=== PATIENT | female | born 1990 | race Caucasian/White ===

== ENCOUNTER → 2018-06-02 | Outpatient (REF) | payer SELFPAY | LOC: M LAB REF 13:08 | DX: Z34.83 Encounter for supervision of other normal pregnancy, third trimester (principal); Z3A.00 Weeks of gestation of pregnancy not specified ==

== ENCOUNTER 2018-06-17 21:29 | Inpatient (IN) | payer BC, SELFPAY ==
[2018-06-17 23:13] LABS: HEMATOCRIT 37.9 % (36.0-47.0); HEMOGLOBIN 12.8 g/dl (12.0-15.5); MEAN CORPUSCULAR HEMOGLOBIN 30.4 pg (27.0-33.0); MEAN CORPUSCULAR HGB CONC 33.8 g/dl (32.0-36.5); PLATELET COUNT, AUTOMATED 169 10^3/uL (150-450); RED BLOOD COUNT 4.21 10^6/uL (4.00-5.40); RED CELL DISTRIBUTION WIDTH 13.1 % (11.5-14.5); WHITE BLOOD COUNT 7.2 10^3/uL (4.0-10.0)
[2018-06-17] MEDS: PENICILLIN G POTASSIUM IV 5 MU in D5W MINI-BAG PLUS 100 ML IV (23:18)
[2018-06-18 02:05] LABS: ALT/SGPT 31 U/L (12-78); AST/SGOT 17 U/L (7-37); BILIRUBIN,TOTAL 0.2 MG/DL (0.2-1.0); CREATININE FOR GFR 0.36 MG/DL (0.55-1.30); GLOMERULAR FILTRATION RATE > 60.0 (>60); LDH LACTATE DEHYDROGENASE 193 U/L (84-246); URIC ACID 3.6 MG/DL (2.6-6.0)
[2018-06-18] MEDS: PENICILLIN G POTASSIUM IV 2.5 MU in APPROPRIATE DILUENT 1 EA IV ×4 (03:09→15:17)
[2018-06-18] MEDS: LR 1,000 ML IV ×3 (10:55→21:00)
[2018-06-18 17:57] LABS: HEMATOCRIT 38.4 % (36.0-47.0); HEMOGLOBIN 13.1 g/dl (12.0-15.5); MEAN CORPUSCULAR HEMOGLOBIN 30.8 pg (27.0-33.0); MEAN CORPUSCULAR HGB CONC 34.1 g/dl (32.0-36.5); MEAN CORPUSCULAR VOLUME 90.4 fl (80.0-96.0); PLATELET COUNT, AUTOMATED 152 10^3/uL (150-450); RED BLOOD COUNT 4.25 10^6/uL (4.00-5.40); RED CELL DISTRIBUTION WIDTH 13.2 % (11.5-14.5); WHITE BLOOD COUNT 8.3 10^3/uL (4.0-10.0)
[2018-06-18 18:24] LABS: ALT/SGPT 29 U/L (12-78); AST/SGOT 26 U/L (7-37); BILIRUBIN,TOTAL 0.5 MG/DL (0.2-1.0); CREATININE FOR GFR 0.23 MG/DL (0.55-1.30); GLOMERULAR FILTRATION RATE > 60.0 (>60); LDH LACTATE DEHYDROGENASE 206 U/L (84-246); URIC ACID 4.2 MG/DL (2.6-6.0)
[2018-06-18] MEDS ORDERED: ERYTHROMYCIN LACTOBIONATE IV (19:00)
[2018-06-18] MEDS ORDERED: D5W IV (19:00)
[2018-06-18] MEDS ORDERED: MATE ADAPTER IV (19:00)
[2018-06-18] MEDS: AZITHROMYCIN INJ 500 MG, VIAL MATE ADAPTER 1 EACH in D5W 250 ML IV (19:12)
[2018-06-18] MEDS: BICITRA 30ML SOLN UDC PO (19:28)
[2018-06-18] MEDS ORDERED: METOCLOPRAMIDE INJ 10MG/2ML VIAL (J2765) IV (19:40)
[2018-06-18] MEDS ORDERED: ONDANSETRON 4MG/2ML VIAL (J2405) IV ×3 (19:40→21:00)
[2018-06-18] MEDS ORDERED: NALOXONE INJ 0.4 MG/1 ML VIAL (J2310) IV ×2 (19:40)
[2018-06-18] MEDS ORDERED: NALBUPHINE HCL 10 MG/ML AMP (J2300) IV ×2 (19:40→21:00)
[2018-06-18] MEDS ORDERED: MORPHINE PRES-FREE INJ 10 MG/10 ML VIAL (J2274) As Ordered (20:05)
[2018-06-18] MEDS ORDERED: OXYTOCIN INJ 10 UNITS/ML VIAL (J2590) As Ordered (20:05)
[2018-06-18] MEDS ORDERED: KETOROLAC 60 MG/2 ML VIAL (J1885) As Ordered (20:05)
[2018-06-18] MEDS ORDERED: ONDANSETRON 4MG/2ML VIAL (J2405) As Ordered (20:05)
[2018-06-18] MEDS ORDERED: METOCLOPRAMIDE INJ 10MG/2ML VIAL (J2765) As Ordered (20:05)
[2018-06-18] MEDS ORDERED: dexameTHASONE 4 MG/ML 1ML VIAL (J1100) As Ordered (20:05)
[2018-06-18] MEDS ORDERED: ePHEDrine SULFATE 25 MG/5 ML(5MG/ML) SYRINGE As Ordered (20:05)
[2018-06-18] MEDS ORDERED: PHENYLephrine HCL 500 MCG/5 ML (100MCG/ML) SYRINGE (J2370) As Ordered (20:05)
[2018-06-18 20:17] LABS: CORD GAS ABE V -3.7; CORD GAS PCO2 V 42.3 mmHg; CORD GAS PH V 7.334 UNITS; CORD GAS PO2 V 21.6 mmHg; CORD GAS SBC V 20.1 MEQ/L; CORD GAS TCO2 V 23.3 MEQ/L
[2018-06-18 20:20] LABS: CORD GAS ABE A -2.3; CORD GAS HCO3 A 25.6 MEQ/L; CORD GAS O2 SAT A < 15.0 %; CORD GAS PCO2 A 57.5 mmHg; CORD GAS PH A 7.267 UNITS; CORD GAS TCO2 A 27.4 MEQ/L
[2018-06-18] MEDS ORDERED: METHYLERGONOVINE MALEATE 0.2 MG TAB PO (20:45)
[2018-06-18] MEDS ORDERED: MOM 30ML SUSPENSION UDC PO (20:45)
[2018-06-18] MEDS ORDERED: RHOGAM 300 MCG (1500 IU) INJ (J2790) IM (20:45)
[2018-06-18] MEDS ORDERED: MEASLES,MUMPS,RUBELLA VACCINE INJ (MMR-II) (90707) SC (20:45)
[2018-06-18] MEDS ORDERED: MEPERIDINE INJ 25 MG/ML VIAL (J2175) IV (21:00)
[2018-06-18] MEDS ORDERED: fentaNYL 100 MCG/2 ML INJECTION (J3010) IV (21:00)
[2018-06-18] MEDS ORDERED: diphenhydrAMINE INJ 50MG/ML VIAL (J1200) IV (21:00)
[2018-06-18] MEDS: DOCUSATE SODIUM 100 MG CAP PO (22:15)
[2018-06-19] MEDS: IBUPROFEN 800 MG TAB PO ×3 (04:09→20:26)
[2018-06-19] MEDS: LR 1,000 ML IV ×3 (04:34→12:34)
[2018-06-19] MEDS: NORCO, ANEXSIA 5/325MG TABLET (HYDROcodone/ACETAMINOPHEN) PO (07:49)
[2018-06-19 07:56] LABS: HEMATOCRIT 31.9 % (36.0-47.0); HEMOGLOBIN 10.9 g/dl (12.0-15.5); MEAN CORPUSCULAR HEMOGLOBIN 30.8 pg (27.0-33.0); MEAN CORPUSCULAR HGB CONC 34.2 g/dl (32.0-36.5); MEAN CORPUSCULAR VOLUME 90.1 fl (80.0-96.0); PLATELET COUNT, AUTOMATED 158 10^3/uL (150-450); RED BLOOD COUNT 3.54 10^6/uL (4.00-5.40); WHITE BLOOD COUNT 9.5 10^3/uL (4.0-10.0)
[2018-06-19] MEDS: LR 500 ML IV (08:15)
[2018-06-19] MEDS: DOCUSATE SODIUM 100 MG CAP PO ×2 (09:18→20:25)
[2018-06-19] MEDS: PRENATAL VITAMINS CHEWABLE TABLET PO (09:19)
[2018-06-20] MEDS: IBUPROFEN 800 MG TAB PO ×2 (04:15→12:10)
[2018-06-20] MEDS: NORCO, ANEXSIA 5/325MG TABLET (HYDROcodone/ACETAMINOPHEN) PO ×3 (04:15→13:50)
[2018-06-20] MEDS: DOCUSATE SODIUM 100 MG CAP PO (08:16)
[2018-06-20] MEDS: PRENATAL VITAMINS CHEWABLE TABLET PO (08:17)
== END 2018-06-20 15:55 | disposition home or self-care (01) | DRG 540 ==
LOC: M LDO 21:29 → M LDI 22:45 → M OBS 06-18 22:20
PROC: 10D00Z1 Extraction of Products of Conception, Low, Open Approach (ICD-10-PCS; principal; 2018-06-18 19:32)
DX: O14.94 Unspecified pre-eclampsia, complicating childbirth (principal); O34.211 Maternal care for low transverse scar from previous cesarean delivery; E66.9 Obesity, unspecified; O99.214 Obesity complicating childbirth; Z37.0 Single live birth; Z3A.39 39 weeks gestation of pregnancy; O99.820 Streptococcus B carrier state complicating pregnancy; O69.82X0 Labor and delivery complicated by other cord entanglement, without compression, not applicable or unspecified